=== PATIENT | male | born 1955 | race Caucasian/White ===

== ENCOUNTER 2016-03-29 19:24 | Inpatient (IN) | payer MEDICARE, OTHER ==
[~2016-03-29] VITALS: Ht 185.4 cm; Wt 121.3 kg
[2016-03-29 11:15] VITALS: BP_SYST 140; RESP 20; TEMP 97.6; Ht 185.4 cm; Wt 121.3 kg
[2016-03-29] MEDS ORDERED: SALINE FLUSH 10 ML FLUSH PRN (22:20)
[2016-03-29] MEDS: SALINE FLUSH 10 ML FLUSH SCH (22:20)
[2016-03-29] MEDS ORDERED: BISACODYL 10 MG SUPP RECTAL PRN (22:20)
[2016-03-29] MEDS ORDERED: BISACODYL EC 5 MG TAB PO PRN (22:20)
[2016-03-29] MEDS ORDERED: ALU/MAG/SIM 30 ML UDC PO PRN (22:20)
[2016-03-29] MEDS ORDERED: MAG HYDROX 30 ML UDC PO PRN (22:20)
[2016-03-29] MEDS: SODIUM CHLORIDE 0.9% 1,000 ML IV SCH (22:53)
[2016-03-30] VITALS (7 sets, daily range): BP systolic 156–173; RESP 18–20; TEMP 97.3–98
[2016-03-30] MEDS: Atorvastatin 20 MG TAB PO SCH ×2 (02:09→20:35)
[2016-03-30] MEDS: ASPIRIN 81 MG CHEW TAB PO SCH (02:29)
[2016-03-30] MEDS: SODIUM CHLORIDE 0.9% FLUSH BAG 500 ML IV SCH (05:03)
[2016-03-30] MEDS: SALINE FLUSH 10 ML FLUSH SCH ×2 (09:22→20:00)
[2016-03-30] MEDS: ENOXAPARIN 40 MG/0.4 ML SYR SUBQ SCH (09:22)
[2016-03-30] MEDS: LISINOPRIL/HCTZ 10/12.5 TAB PO SCH (11:20)
[2016-03-30] MEDS: amLODIPine 10 MG TAB PO SCH (11:20)
[2016-03-30] MEDS ORDERED: CLOPIDOGREL 75 MG TAB PO ONE (17:20)
[2016-03-31 03:11] VITALS: BP_SYST 169; RESP 18; TEMP 97.6
[2016-03-31] MEDS: SODIUM CHLORIDE 0.9% 1,000 ML IV SCH (04:54)
[2016-03-31] MEDS: SODIUM CHLORIDE 0.9% FLUSH BAG 500 ML IV SCH (05:05)
[2016-03-31 07:19] VITALS: BP_SYST 178; RESP 20; TEMP 98.4
[2016-03-31] MEDS ORDERED: CLOPIDOGREL 75 MG TAB PO SCH (09:00)
[2016-03-31] MEDS ORDERED: MISSING DOSE XX ONE (09:50)
[2016-03-31] MEDS: LISINOPRIL/HCTZ 10/12.5 TAB PO SCH (09:51)
[2016-03-31] MEDS: amLODIPine 10 MG TAB PO SCH (09:51)
[2016-03-31] MEDS: SALINE FLUSH 10 ML FLUSH SCH ×2 (09:51→19:56)
[2016-03-31] MEDS: ENOXAPARIN 40 MG/0.4 ML SYR SUBQ SCH (09:51)
[2016-03-31] MEDS: ASPIRIN 81 MG CHEW TAB PO SCH (10:14)
[2016-03-31] MEDS: LISINOPRIL/HCTZ 20-25 TAB PO SCH (11:18)
[2016-03-31 11:40] VITALS: BP_SYST 179; RESP 20; TEMP 98.1
[2016-03-31 11:41] VITALS: BP_SYST 170
[2016-03-31 15:06] VITALS: BP_SYST 143; RESP 20; TEMP 97.3
[2016-03-31] MEDS: ACETAMINOPHEN 325 MG TAB PO PRN (15:56)
[2016-03-31] MEDS: Atorvastatin 20 MG TAB PO SCH (19:56)
[2016-03-31 19:59] VITALS: BP_SYST 156; RESP 20; TEMP 97.6
[2016-03-31] MEDS ORDERED: ZOLPIDEM 5 MG TAB PO ONE (23:00)
[2016-04-01] VITALS (7 sets, daily range): BP systolic 145–175; RESP 18; TEMP 97.2–98.4
[2016-04-01] MEDS: SODIUM CHLORIDE 0.9% FLUSH BAG 500 ML IV SCH (05:40)
[2016-04-01] MEDS: LISINOPRIL/HCTZ 20-25 TAB PO SCH (08:43)
[2016-04-01] MEDS: SALINE FLUSH 10 ML FLUSH SCH ×2 (08:44→20:36)
[2016-04-01] MEDS: ASPIRIN 81 MG CHEW TAB PO SCH (08:44)
[2016-04-01] MEDS: amLODIPine 10 MG TAB PO SCH (08:44)
[2016-04-01] MEDS: ENOXAPARIN 40 MG/0.4 ML SYR SUBQ SCH (08:45)
[2016-04-01] MEDS: ACETAMINOPHEN 325 MG TAB PO PRN ×2 (15:59→21:08)
[2016-04-01] MEDS ORDERED: Atorvastatin 40 MG TAB PO SCH (21:00)
[2016-04-02] MEDS: SODIUM CHLORIDE 0.9% FLUSH BAG 500 ML IV SCH (01:26)
[2016-04-02 03:20] VITALS: BP_SYST 135; RESP 18; TEMP 97.3
[2016-04-02 07:54] VITALS: BP_SYST 150; BP_SYST 156; RESP 18; TEMP 98.6
[2016-04-02] MEDS: SALINE FLUSH 10 ML FLUSH SCH (09:24)
[2016-04-02] MEDS: amLODIPine 10 MG TAB PO SCH (09:24)
[2016-04-02] MEDS: LISINOPRIL/HCTZ 20-25 TAB PO SCH (09:24)
[2016-04-02] MEDS: ASPIRIN 81 MG CHEW TAB PO SCH (09:26)
[2016-04-02] MEDS: ENOXAPARIN 40 MG/0.4 ML SYR SUBQ SCH (09:27)
[2016-04-02 11:02] VITALS: BP_SYST 156; RESP 18; TEMP 98.6
[2016-04-02 11:18] VITALS: BP_SYST 152; RESP 16; TEMP 98
[2016-04-02 15:16] VITALS: BP_SYST 128; RESP 18; TEMP 97.5
== END 2016-04-02 16:44 | DRG 65 ==
LOC: ENRESERVDT → ENRESERVTM → ENPENDDIS 22:15 → PCU 22:15
PROVIDERS: ADMIT Internal Medicine; ATTEND Internal Medicine
CPT/HCPCS: 70450; 70544; 70551; 80048; 80053; 80061; 81003; 82330; 82550; 82553; 82607; 82746; 83036; 83735; 83880; 84439; 84443; 84484; 85025; 85610; 85652; 85730; 86780; 93005; 93306; 93880; 94799; 99223; 99232; 99233; 99239